=== PATIENT | female | born 1990 | race Caucasian/White ===

== ENCOUNTER → 2025-04-25 10:31 | Outpatient (REF) | payer BC, SELFPAY ==
[2025-04-25 11:23] LABS: Urine Albumin 1+ (Neg - Trace); Urine Bilirubin Negative (Negative); Urine Character Clear (Clear); Urine Color Yellow; Urine Glucose Negative (Negative); Urine Ketone Negative (Negative); Urine Leukocyte Negative (Negative); Urine Nitrite Negative (Negative); Urine Occult Blood 1+ (Negative); Urine Urobilinogen Negative (Neg - 1+)
[2025-04-25 11:23] LABS: % Basophils 0.3 % (0-2); % Eosinophils 1.5 % (0-6); % Immature Granulocytes 0.3 % (0-0.5); % Lymphocytes 23.4 % (20.5-51.1); % Monocytes 5.7 % (1.7-9.3); % Neutrophils 68.8 % (42.2-75.2); Absolute Eosinophils 0.1 10^3/uL (0-0.7); Absolute Lymphocytes 1.8 10^3/uL (1.2-3.4); Absolute Monocytes 0.4 10^3/uL (0.1-0.6); Absolute Neutrophils 5.2 10^3/uL (1.4-6.5); Hematocrit 37.7 % (37.0-47.0); Hemoglobin 13.3 g/dL (12.0-16.0); Mean Corp Hgb Conc. 35.3 g/dL (33.0-37.0); Mean Corpuscular Hgb 27.7 pg (27.0-31.0); Mean Corpuscular Volume 78.5 fL (81.0-99.0); Mean Platelet Volume 9.8 fL (7.4-10.4); Nucleated Red Blood Cells % 0 %; Platelet Count 246 10^3/uL (130-400); Red Cell Dist. Width 12.8 % (11.5-14.5); White Blood Cell Count 7.6 10^3/uL (4.8-10.8)
[2025-04-25 11:29] LABS: Urine Bacteria Few (Negative); Urine Mucus Moderate; Urine Red Blood Cell 0-2 /HPF (0-2); Urine Squamous Cell 21-25 /LPF (Few); Urine White Cell 0-2 /HPF (0-5)
[2025-04-25 12:29] LABS: Glycohemoglobin (HgbA1c) 4.9 % (4.0-5.6)
[2025-04-25 13:37] LABS: Hepatitis B Surface Antigen Negative (Negative)
[2025-04-25 13:48] LABS: HIV Combo Negative (Negative)
[2025-04-25 13:51] LABS: Rubella Positive
[2025-04-25 13:55] LABS: Hepatitis B Core Ab, Total Negative (Negative); Hepatitis B Surface Antibody Positive; Hepatitis C Antibody Negative (Negative)
== END ==
LOC: REG 10:31
PROVIDERS: ATTENDING PHYSICIAN Nurse Practitioner Family
DX: Z34.01 Encounter for supervision of normal first pregnancy, first trimester (principal)
CPT/HCPCS: 36415; 81003; 81015; 83036; 84702; 85025; 86704; 86706; 86762; 86780; 86803; 86850; 86900; 86901; 87077; 87086; 87147; 87340; 87389

== ENCOUNTER 2025-05-07 09:10 | Emergency (ER) | payer BC, SELFPAY ==
[2025-05-07 09:28] VITALS: BP 127/88
--- NOTE | 2025-05-07 11:06 | ED.GENMED ---
History of Present Illness
General
Chief Complaint: Problems
Time Seen by Provider: 05/07/25 10:52
History of Present Illness
History of Present Illness:
34-year-old female presents the emergency department for evaluation of vaginal bleeding. States she had light spotting last night, awoke this morning with lower abdominal cramping and bleeding described as 'similar to a period'. This is her first
, twin gestation, had gone through fertility treatments and has had IUP confirmed by ultrasound already. No fevers or chills.
Review of Systems
Review of Systems
Allergies reviewed?: Yes
All Other Systems: ROS reviewed and negative except as documented in HPI and ROS
Phy Exam
Physical Exam
Physical Exam:
GEN: Well appearing, NAD, WDWN
HEENT: Oral mucosa moist, no scleral icterus
Cardiac: Regular rate
Lung: No respiratory distress, no tachypnea
MSK: No gross deformity or injuries
Skin: Good color, no pallor or jaundice, no rashes
Neuro: AO x3, moves all extremities freely
Psych: Calm, cooperative
Course
Orders/Labs/Results
Orders:
Orders
05/07/25
US Preg 1st Trim EA Additional Urgent
Reason For Exam: vaginal bleeding twin
05/07/25 11:06
US 1st Trimester Urgent
Reason For Exam: 1st trimester bleeding
05/07/25 11:14
Type+Screen Urgent
Complete Blood Count/No Diff Urgent
HCG, Beta Quantitative [Beta HCG Quantitative] Urgent
Is this a screen?: No
05/07/25 13:37
* Blood Bank Products Urgent
Blood Bank Products: *Rhogam - Full Dose
Quantity: 300mg
Transfuse Today: Yes
Reason: Other
Other reason: Vaginal bleeding/miscarriage
Rho (D) Immune Globulin [Rhogam] 300 mcg IM ONCE ONE
Abnormal Lab Results
05/07/25
11:14
Hct 36.5 L %
(37.0-47.0)
05/07/25 11:14
Vital Signs
Initial and Last Documented VS:
Initial Vital Signs
Temp Pulse Resp BP Pulse Ox
98.8 F 99 16 127/88 99
05/07/25 09:28 05/07/25 09:28 05/07/25 09:28 05/07/25 09:28 05/07/25 09:28
Last Documented Vital Signs
Temp Pulse Resp BP Pulse Ox
98.8 F 83 20 123/78 98
05/07/25 09:28 05/07/25 14:14 05/07/25 14:14 05/07/25 14:14 05/07/25 14:14
Information
Weeks gestation: Weeks: (12)
Location: Location: (IUP, twin)
MDM/Problems Addressed
MDM/Problems Addressed:
Imaging reveals a small subchorionic collection with no evidence for compromise at this point. Patient advised strict pelvic rest, due to second trimester bleeding given RhoGAM as she has a negative blood type, will follow-up as an outpatient
with ROOM DESIGNER
*Pulse Oximetry
SaO2: 99
Oxygen Mode of Delivery: Room air
Patient hypoxic: no
*Critical Care Note
Total Time (30-74mins, 75-104mins- exclusive of procedures): Not Applicable
ED Attending Note
-
Portions of this chart may have been created with voice recognition software.� Occasional wrong word or��sound alike� substitutions may have occurred due to the inherent limitations of voice recognition software.
Discharge Plan
Departure
Patient Disposition: Home (Routine Discharge)
Date of Disposition: 05/07/25
Time of Disposition: 14:09
Patient with high blood pressure during this ER visit?: No
Discharge Problem:
Subchorionic hemorrhage in second trimester
Instructions: Subchorionic Bleeding
Referrals:
Ifeoma Barnes MD [Active, Gynecology]
Hugh Lundberg MD [Family Provider]
Activity Restrictions/Additional Instructions:
Strict pelvic rest, no intercourse, no heavy lifting >25 lbs, no vigorous exertion
Follow up with OBGYN
Interventions
Interventions:
*Risk Screen - Suicide Last Done: 05/07/25 11:20
*General Assessment Last Done: 05/07/25 11:20
*Neglect/Abuse Screening Last Done: 05/07/25 11:20
*ED- Fall Risk Assessment Last Done: 05/07/25 11:20
*ED COVID-19 Vaccine History Last Done: 05/07/25 11:20
*Nursing Disposition Last Done: 05/07/25 14:39
ED-Female Genitourinary Assessment Last Done: 05/07/25 11:20
Discharge Date and Time
Discharge Date/Time: 05/07/25 14:40
Print Language: WELSH
[2025-05-07 11:32] LABS: Hematocrit 36.5 % (37.0-47.0); Hemoglobin 12.6 g/dL (12.0-16.0); Mean Corp Hgb Conc. 34.5 g/dL (33.0-37.0); Mean Corpuscular Volume 81.3 fL (81.0-99.0); Platelet Count 234 10^3/uL (130-400); Red Cell Dist. Width 13.0 % (11.5-14.5)
[2025-05-07 12:27] LABS: Beta HCG Quantitative 170160.00 mIU/ml
[2025-05-07] MEDS: RHOGAM 300 MCG IM (14:10)
[2025-05-07 14:14] VITALS: BP 123/78
== END 2025-05-07 14:40 | disposition home or self-care (01) ==
LOC: EMR 09:10
PROVIDERS: Physician Assistant; EMERGENCY PHYSICIAN Emergency Medicine; FAMILY PHYSICIAN Internal Medicine
DX: O20.8 Other hemorrhage in early pregnancy (principal); Z3A.00 Weeks of gestation of pregnancy not specified; R10.30 Lower abdominal pain, unspecified; Z88.1 Allergy status to other antibiotic agents
CPT/HCPCS: 99284; 96372; 90384; 76801; 76802; 84702; 85027; 86850; 86900; 86901; J2790

== ENCOUNTER → 2025-05-11 11:14 | Outpatient (REF) | payer BC, SELFPAY | LOC: PNTC 11:14 | PROVIDERS: ATTENDING PHYSICIAN Obstetrics & Gynecology | DX: Z36.0 Encounter for antenatal screening for chromosomal anomalies (principal); Z36.82 Encounter for antenatal screening for nuchal translucency | CPT/HCPCS: 76801; 76802; 76813; 76814 ==

== ENCOUNTER → 2025-05-18 12:44 | Outpatient (REF) | payer BC, SELFPAY | LOC: RAD 12:44 | PROVIDERS: ATTENDING PHYSICIAN Student in an Organized Health Care Education/Training Program; FAMILY PHYSICIAN Internal Medicine | DX: O26.859 Spotting complicating pregnancy, unspecified trimester (principal) | CPT/HCPCS: 76805; 76810 ==

== ENCOUNTER → 2025-07-04 08:04 | Outpatient (REF) | payer BC, SELFPAY | LOC: PNTC 08:04 | PROVIDERS: ATTENDING PHYSICIAN Obstetrics & Gynecology | DX: O30.049 Twin pregnancy, dichorionic/diamniotic, unspecified trimester (principal) | CPT/HCPCS: 76811; 76812; 76817 ==

== ENCOUNTER → 2025-07-17 13:52 | Outpatient (REF) | payer BC, SELFPAY ==
[2025-07-17 15:11] LABS: Hematocrit 28.7 % (37.0-47.0); Hemoglobin 9.7 g/dL (12.0-16.0); Mean Corp Hgb Conc. 33.8 g/dL (33.0-37.0); Mean Corpuscular Volume 83.4 fL (81.0-99.0); Nucleated Red Blood Cells % 0 %; Platelet Count 233 10^3/uL (130-400); Red Cell Dist. Width 13.2 % (11.5-14.5)
[2025-07-17 15:19] LABS: ALT (SGPT) 22 U/L (0-35); AST (SGOT) 21 U/L (14-36); Albumin 3.4 g/dl (3.5-5.0); Alkaline Phosphatase 73 U/L (38-126); Blood Urea Nitrogen 4 mg/dl (7-17); Calcium 9.1 mg/dl (8.4-10.2); Carbon Dioxide 24 mmol/L (22-30); Chloride 105 mmol/L (98-107); Glucose 78 mg/dl (70-99); Potassium 3.7 mmol/L (3.5-5.1); Sodium 134 mmol/L (135-145); Total Protein 6.2 g/dl (6.3-8.2); eGFR > 60.00
[2025-07-17 15:32] LABS: Urine Character Slightly Cloudy (Clear)
== END ==
LOC: REG 13:52
PROVIDERS: ATTENDING PHYSICIAN Student in an Organized Health Care Education/Training Program; FAMILY PHYSICIAN Internal Medicine
DX: Z34.90 Encounter for supervision of normal pregnancy, unspecified, unspecified trimester (principal)
CPT/HCPCS: 36415; 80053; 81003; 82570; 84156; 85025

== ENCOUNTER → 2025-07-18 07:45 | Outpatient (REF) | payer BC, SELFPAY | LOC: PNTC 07:45 | PROVIDERS: ATTENDING PHYSICIAN Student in an Organized Health Care Education/Training Program | DX: O28.3 Abnormal ultrasonic finding on antenatal screening of mother (principal) | CPT/HCPCS: 76815 ==

== ENCOUNTER → 2025-07-24 16:43 | Outpatient (REF) | payer BC, SELFPAY ==
[2025-07-24 17:55] LABS: ALT (SGPT) 21 U/L (0-35); AST (SGOT) 20 U/L (14-36); Albumin 3.5 g/dl (3.5-5.0); Alkaline Phosphatase 75 U/L (38-126); Blood Urea Nitrogen 5 mg/dl (7-17); Calcium 8.8 mg/dl (8.4-10.2); Carbon Dioxide 25 mmol/L (22-30); Chloride 104 mmol/L (98-107); Glucose 76 mg/dl (70-99); Potassium 3.6 mmol/L (3.5-5.1); Sodium 130 mmol/L (135-145); Total Protein 6.2 g/dl (6.3-8.2); eGFR > 60.00
[2025-07-24 18:41] LABS: Urine Character Slightly Cloudy (Clear)
[2025-07-24 19:44] LABS: Urine Red Blood Cell 0-2 /HPF (0-2); Urine Squamous Cell >30 /LPF (Few); Urine White Cell 0-2 /HPF (0-5)
[2025-07-24 23:07] LABS: Height Cm 170.18 CM; Weight Kg 99.7 KG.
[2025-07-24 23:10] LABS: 24 Hour Urine Total Volume 2225 ml; Creat Clear Result 52.4 ml/min (61-166)
== END ==
LOC: REG 16:43
PROVIDERS: ATTENDING PHYSICIAN Student in an Organized Health Care Education/Training Program; FAMILY PHYSICIAN Internal Medicine
DX: Z34.90 Encounter for supervision of normal pregnancy, unspecified, unspecified trimester (principal); R80.8 Other proteinuria
CPT/HCPCS: 36415; 80053; 81003; 81015; 81050; 82570; 82575; 84156

== ENCOUNTER → 2025-08-03 08:10 | Outpatient (REF) | payer BC, SELFPAY | LOC: PNTC 08:10 | PROVIDERS: ATTENDING PHYSICIAN Obstetrics & Gynecology | DX: O30.049 Twin pregnancy, dichorionic/diamniotic, unspecified trimester (principal) | CPT/HCPCS: 76816 ==

== ENCOUNTER → 2025-08-16 07:50 | Outpatient (REF) | payer BC, SELFPAY ==
[2025-08-16 09:35] LABS: Hematocrit 27.8 % (37.0-47.0); Hemoglobin 9.5 g/dL (12.0-16.0); Mean Corp Hgb Conc. 34.2 g/dL (33.0-37.0); Mean Corpuscular Volume 80.3 fL (81.0-99.0); Nucleated Red Blood Cells % 0 %; Platelet Count 207 10^3/uL (130-400); Red Cell Dist. Width 12.9 % (11.5-14.5)
[2025-08-16 10:08] LABS: 1 Hour after 50gm 132 mg/dl
[2025-08-18 13:50] LABS: Syphilis/T. pallidum Ab Reflex Negative (Negative)
== END ==
LOC: REG 07:50
PROVIDERS: ATTENDING PHYSICIAN Obstetrics & Gynecology; FAMILY PHYSICIAN Internal Medicine
DX: Z34.93 Encounter for supervision of normal pregnancy, unspecified, third trimester (principal)
CPT/HCPCS: 36415; 82950; 85025; 86780

== ENCOUNTER → 2025-09-07 13:18 | Outpatient (REF) | payer BC, SELFPAY | LOC: PNTC 13:18 | PROVIDERS: ATTENDING PHYSICIAN Student in an Organized Health Care Education/Training Program | DX: O30.043 Twin pregnancy, dichorionic/diamniotic, third trimester (principal) | CPT/HCPCS: 36415; 76816; 86850; 86900; 86901; 96372; J2790 ==

== ENCOUNTER → 2025-09-21 09:37 | Outpatient (REF) | payer BC, SELFPAY | LOC: PNTC 09:37 | PROVIDERS: ATTENDING PHYSICIAN Obstetrics & Gynecology | DX: O12.13 Gestational proteinuria, third trimester (principal); O13.3 Gestational [pregnancy-induced] hypertension without significant proteinuria, third trimester; O30.043 Twin pregnancy, dichorionic/diamniotic, third trimester | CPT/HCPCS: 59025; 76815 ==

== ENCOUNTER → 2025-09-27 09:57 | Outpatient (REF) | payer BC, SELFPAY ==
[2025-09-27 10:35] LABS: Hematocrit 27.5 % (37.0-47.0); Hemoglobin 9.2 g/dL (12.0-16.0); Mean Corp Hgb Conc. 33.5 g/dL (33.0-37.0); Mean Corpuscular Volume 77.7 fL (81.0-99.0); Platelet Count 193 10^3/uL (130-400); Red Cell Dist. Width 13.2 % (11.5-14.5)
[2025-09-27 10:44] LABS: Urine Character Clear (Clear)
[2025-09-27 10:46] LABS: ALT (SGPT) 16 U/L (0-35); AST (SGOT) 19 U/L (14-36); Albumin 2.9 g/dl (3.5-5.0); Alkaline Phosphatase 143 U/L (38-126); Blood Urea Nitrogen 3 mg/dl (7-17); Calcium 8.4 mg/dl (8.4-10.2); Carbon Dioxide 21 mmol/L (22-30); Chloride 108 mmol/L (98-107); Glucose 118 mg/dl (70-99); Potassium 3.9 mmol/L (3.5-5.1); Sodium 133 mmol/L (135-145); Total Protein 5.6 g/dl (6.3-8.2); eGFR > 60.00
[2025-09-27 11:33] LABS: Urine Squamous Cell >30 /LPF (Few)
== END ==
LOC: PNTC 09:57
PROVIDERS: Student in an Organized Health Care Education/Training Program; ATTENDING PHYSICIAN Obstetrics & Gynecology
DX: O30.043 Twin pregnancy, dichorionic/diamniotic, third trimester (principal); Z34.93 Encounter for supervision of normal pregnancy, unspecified, third trimester
CPT/HCPCS: 36415; 59025; 76815; 80053; 81003; 81015; 82570; 84156; 85027

== ENCOUNTER → 2025-10-02 09:40 | Outpatient (REF) | payer BC, SELFPAY | LOC: PNTC 09:40 | PROVIDERS: ATTENDING PHYSICIAN Obstetrics & Gynecology | DX: O30.043 Twin pregnancy, dichorionic/diamniotic, third trimester (principal); Z34.93 Encounter for supervision of normal pregnancy, unspecified, third trimester; O13.3 Gestational [pregnancy-induced] hypertension without significant proteinuria, third trimester | CPT/HCPCS: 59025 ==

== ENCOUNTER → 2025-10-05 08:08 | Outpatient (REF) | payer BC, SELFPAY ==
[2025-10-05 08:48] LABS: Hematocrit 30.0 % (37.0-47.0); Hemoglobin 9.8 g/dL (12.0-16.0); Mean Corp Hgb Conc. 32.7 g/dL (33.0-37.0); Mean Corpuscular Volume 81.5 fL (81.0-99.0); Platelet Count 176 10^3/uL (130-400); Red Cell Dist. Width 15.9 % (11.5-14.5)
[2025-10-05 09:19] LABS: ALT (SGPT) 17 U/L (0-35); AST (SGOT) 23 U/L (14-36); Albumin 2.9 g/dl (3.5-5.0); Alkaline Phosphatase 154 U/L (38-126); Blood Urea Nitrogen < 2 mg/dl (7-17); Calcium 8.7 mg/dl (8.4-10.2); Carbon Dioxide 24 mmol/L (22-30); Chloride 107 mmol/L (98-107); Glucose 91 mg/dl (70-99); Sodium 132 mmol/L (135-145); Total Protein 5.7 g/dl (6.3-8.2); eGFR > 60.00
[2025-10-05 10:02] LABS: Potassium 4.3 mmol/L (3.5-5.1)
== END ==
LOC: PNTC 08:08
PROVIDERS: ATTENDING PHYSICIAN Student in an Organized Health Care Education/Training Program
DX: O30.043 Twin pregnancy, dichorionic/diamniotic, third trimester (principal); O14.03 Mild to moderate pre-eclampsia, third trimester
CPT/HCPCS: 36415; 59025; 76805; 76810; 80053; 82570; 84156; 85027

== ENCOUNTER → 2025-10-09 13:38 | Outpatient (REF) | payer BC, SELFPAY | LOC: PNTC 13:38 | PROVIDERS: ATTENDING PHYSICIAN Obstetrics & Gynecology | DX: O30.043 Twin pregnancy, dichorionic/diamniotic, third trimester (principal) | CPT/HCPCS: 59025 ==

== ENCOUNTER → 2025-10-12 08:34 | Outpatient (REF) | payer BC, SELFPAY ==
[2025-10-12 09:12] LABS: Urine Character Cloudy (Clear)
[2025-10-12 09:15] LABS: Hematocrit 31.1 % (37.0-47.0); Hemoglobin 10.1 g/dL (12.0-16.0); Mean Corp Hgb Conc. 32.5 g/dL (33.0-37.0); Mean Corpuscular Volume 79.9 fL (81.0-99.0); Nucleated Red Blood Cells % 0 %; Platelet Count 189 10^3/uL (130-400); Red Cell Dist. Width 18.5 % (11.5-14.5)
[2025-10-12 09:20] LABS: Urine Red Blood Cell 0-2 /HPF (0-2); Urine Squamous Cell >30 /LPF (Few); Urine White Cell None Seen /HPF (0-5)
[2025-10-12 10:34] LABS: ALT (SGPT) 15 U/L (0-35); AST (SGOT) 22 U/L (14-36); Albumin 2.9 g/dl (3.5-5.0); Alkaline Phosphatase 174 U/L (38-126); Blood Urea Nitrogen 3 mg/dl (7-17); Calcium 8.8 mg/dl (8.4-10.2); Carbon Dioxide 20 mmol/L (22-30); Chloride 108 mmol/L (98-107); Glucose 89 mg/dl (70-99); Potassium 4.2 mmol/L (3.5-5.1); Sodium 132 mmol/L (135-145); Total Protein 5.7 g/dl (6.3-8.2); Uric Acid 4.9 mg/dl (2.5-6.2); eGFR > 60.00
== END ==
LOC: PNTC 08:34
PROVIDERS: ATTENDING PHYSICIAN Obstetrics & Gynecology
DX: O30.043 Twin pregnancy, dichorionic/diamniotic, third trimester (principal)
CPT/HCPCS: 36415; 59025; 76815; 76818; 80053; 81003; 81015; 82570; 84156; 84550; 85025

== ENCOUNTER 2025-10-16 17:49 | Observation (INO) | payer BC, SELFPAY ==
[2025-10-16 18:08] VITALS: BMI 36.1
[2025-10-16 18:10] VITALS: BP 147/94
[2025-10-16 18:32] LABS: Hematocrit 32.5 % (37.0-47.0); Hemoglobin 10.7 g/dL (12.0-16.0); Mean Corp Hgb Conc. 32.9 g/dL (33.0-37.0); Mean Corpuscular Volume 80.6 fL (81.0-99.0); Platelet Count 199 10^3/uL (130-400); Red Cell Dist. Width 18.6 % (11.5-14.5)
[2025-10-16 19:23] LABS: ALT (SGPT) 15 U/L (0-35); AST (SGOT) 24 U/L (14-36); Albumin 2.9 g/dl (3.5-5.0); Alkaline Phosphatase 179 U/L (38-126); Blood Urea Nitrogen 5 mg/dl (7-17); Calcium 8.4 mg/dl (8.4-10.2); Carbon Dioxide 15 mmol/L (22-30); Chloride 106 mmol/L (98-107); Estimated Creatinine Clearance > 125 ml/min; Glucose 106 mg/dl (70-99); Potassium 3.9 mmol/L (3.5-5.1); Sodium 129 mmol/L (135-145); Total Protein 5.7 g/dl (6.3-8.2); eGFR > 60.00
== END 2025-10-16 20:27 | disposition home or self-care (01) ==
LOC: LDRP 17:49
PROVIDERS: ADMITTING PHYSICIAN Obstetrics & Gynecology
DX: O13.3 Gestational [pregnancy-induced] hypertension without significant proteinuria, third trimester (principal); R10.11 Right upper quadrant pain; Z3A.35 35 weeks gestation of pregnancy; O99.013 Anemia complicating pregnancy, third trimester; D64.9 Anemia, unspecified; Z88.1 Allergy status to other antibiotic agents
CPT/HCPCS: 80053; 82570; 84156; 85027; 86850; 86870; 86900; 86901; G0378

== ENCOUNTER → 2025-10-19 14:27 | Outpatient (REF) | payer BC, SELFPAY | LOC: PNTC 14:27 | PROVIDERS: ATTENDING PHYSICIAN Obstetrics & Gynecology | DX: O30.043 Twin pregnancy, dichorionic/diamniotic, third trimester (principal) | CPT/HCPCS: 59025 ==

== ENCOUNTER 2025-10-21 13:04 | Observation (INO) | payer BC, SELFPAY ==
[2025-10-21 14:43] VITALS: BP 143/102; BMI 36.1
[2025-10-21 14:43] LABS: Hematocrit 33.7 % (37.0-47.0); Hemoglobin 11.2 g/dL (12.0-16.0); Mean Corp Hgb Conc. 33.2 g/dL (33.0-37.0); Mean Corpuscular Volume 81.2 fL (81.0-99.0); Platelet Count 172 10^3/uL (130-400); Red Cell Dist. Width 18.5 % (11.5-14.5)
[2025-10-21 15:12] LABS: Urine Character Slightly Cloudy (Clear)
[2025-10-21 15:13] LABS: ALT (SGPT) 16 U/L (0-35); AST (SGOT) 27 U/L (14-36); Albumin 3.0 g/dl (3.5-5.0); Alkaline Phosphatase 189 U/L (38-126); Blood Urea Nitrogen 6 mg/dl (7-17); Calcium 8.6 mg/dl (8.4-10.2); Carbon Dioxide 19 mmol/L (22-30); Chloride 105 mmol/L (98-107); Estimated Creatinine Clearance > 125 ml/min; Glucose 77 mg/dl (70-99); Potassium 4.0 mmol/L (3.5-5.1); Sodium 131 mmol/L (135-145); Total Protein 5.7 g/dl (6.3-8.2); eGFR > 60.00
[2025-10-21 15:23] LABS: Urine Squamous Cell >30 /LPF (Few)
[2025-10-21 15:24] LABS: Urine Red Blood Cell 0-2 /HPF (0-2); Urine White Cell 0-2 /HPF (0-5)
== END 2025-10-21 16:59 | disposition home or self-care (01) ==
LOC: LDRP 13:04
PROVIDERS: ADMITTING PHYSICIAN Obstetrics & Gynecology; ATTENDING PHYSICIAN Obstetrics & Gynecology
DX: O99.891 Other specified diseases and conditions complicating pregnancy (principal); R10.11 Right upper quadrant pain; Z3A.36 36 weeks gestation of pregnancy
CPT/HCPCS: 59025; 80053; 81003; 81015; 82570; 84156; 85027; 86850; 86870; 86900; 86901; G0378

== ENCOUNTER → 2025-10-23 09:37 | Outpatient (REF) | payer BC, SELFPAY | LOC: PNTC 09:37 | PROVIDERS: ATTENDING PHYSICIAN Obstetrics & Gynecology | DX: O30.043 Twin pregnancy, dichorionic/diamniotic, third trimester (principal); O14.03 Mild to moderate pre-eclampsia, third trimester | CPT/HCPCS: 59025 ==

== ENCOUNTER 2025-10-25 12:01 | Inpatient (IN) | payer BC, SELFPAY ==
[2025-10-25 12:21] VITALS: BP 157/95; BMI 36.1
[2025-10-25 12:46] LABS: Hematocrit 34.3 % (37.0-47.0); Hemoglobin 11.5 g/dL (12.0-16.0); Mean Corp Hgb Conc. 33.5 g/dL (33.0-37.0); Mean Corpuscular Volume 79.0 fL (81.0-99.0); Nucleated Red Blood Cells % 0 %; Platelet Count 177 10^3/uL (130-400); Red Cell Dist. Width 18.2 % (11.5-14.5)
[2025-10-25] MEDS: TYLENOL 975 MG PO (13:20)
[2025-10-25] MEDS: BICITRA 30 ML PO (13:20)
[2025-10-25 13:30] LABS: ALT (SGPT) 18 U/L (0-35); AST (SGOT) 28 U/L (14-36); Albumin 3.1 g/dl (3.5-5.0); Alkaline Phosphatase 213 U/L (38-126); Blood Urea Nitrogen 6 mg/dl (7-17); Calcium 9.1 mg/dl (8.4-10.2); Carbon Dioxide 19 mmol/L (22-30); Chloride 107 mmol/L (98-107); Estimated Creatinine Clearance > 125 ml/min; Glucose 70 mg/dl (70-99); Potassium 4.4 mmol/L (3.5-5.1); Sodium 132 mmol/L (135-145); Total Protein 6.0 g/dl (6.3-8.2); eGFR > 60.00
[2025-10-25] MEDS: TRANEXAMIC ACID 100 IV (17:07)
[2025-10-25] MEDS: TORADOL 15 MG IV ×2 (17:31→23:10)
[2025-10-25] MEDS: ZOLOFT 50 MG PO (20:59)
[2025-10-25] MEDS: TYLENOL 650 MG PO (20:59)
[2025-10-25] MEDS: COLACE 100 MG PO (20:59)
[2025-10-26] MEDS: BENADRYL 25 MG PO (03:37)
[2025-10-26] MEDS: TYLENOL 650 MG PO (03:37)
[2025-10-26] MEDS: TORADOL 15 MG IV ×2 (05:28→12:16)
[2025-10-26 06:02] LABS: Hematocrit 29.3 % (37.0-47.0); Hemoglobin 9.8 g/dL (12.0-16.0); Mean Corp Hgb Conc. 33.4 g/dL (33.0-37.0); Mean Corpuscular Volume 79.8 fL (81.0-99.0); Platelet Count 160 10^3/uL (130-400); Red Cell Dist. Width 18.1 % (11.5-14.5)
[2025-10-26] MEDS: COLACE 100 MG PO ×2 (08:07→19:57)
[2025-10-26] MEDS: PRENATAL PLUS 1 TABLET PO (08:07)
[2025-10-26] MEDS: FEOSOL 325 MG PO (08:07)
[2025-10-26] MEDS: RHOGAM 300 MCG IM (13:02)
[2025-10-26] MEDS: MOTRIN 600 MG PO (18:49)
[2025-10-26] MEDS: ZOLOFT 50 MG PO (20:07)
[2025-10-27] MEDS: MOTRIN 600 MG PO ×4 (03:46→22:31)
[2025-10-27] MEDS: TYLENOL 650 MG PO ×3 (03:47→20:50)
--- NOTE | 2025-10-27 07:19 | W.PN.ANS.POP ---
Anesthesia Post Operative
- Anesthesia Post Op Note
Vital Signs Stable-See Nursing Note: Yes
Airway Patent: Yes
Adequate Pain Control: Yes
Change in Mental Status: No
Current Postoperative Nausea & Vomiting: No
Anesthesia Complications: No
General Anesthetic Recall: No
Unplanned Admission: No
Post Op Hydration Adequate: Yes
[2025-10-27] MEDS: PRENATAL PLUS 1 TABLET PO (07:53)
[2025-10-27] MEDS: COLACE 100 MG PO ×2 (07:53→20:39)
[2025-10-27] MEDS: FEOSOL 325 MG PO (07:53)
[2025-10-27] MEDS: ROXICODONE 5 MG PO ×2 (11:38→16:22)
[2025-10-27] MEDS: ROXICODONE 10 MG PO (20:50)
[2025-10-27] MEDS: ZOLOFT 50 MG PO (20:51)
[2025-10-28] MEDS: ROXICODONE 10 MG PO (03:40)
[2025-10-28] MEDS: MOTRIN 600 MG PO ×3 (05:38→18:46)
[2025-10-28] MEDS: FEOSOL 325 MG PO (09:00)
[2025-10-28] MEDS: ROXICODONE 5 MG PO ×3 (09:00→21:15)
[2025-10-28] MEDS: TYLENOL 650 MG PO ×3 (09:01→21:16)
[2025-10-28] MEDS: COLACE 100 MG PO ×2 (09:01→20:19)
[2025-10-28] MEDS: PRENATAL PLUS 1 TABLET PO (09:04)
[2025-10-28] MEDS: ZOLOFT 50 MG PO (20:19)
[2025-10-29] MEDS: MOTRIN 600 MG PO ×2 (00:33→08:37)
[2025-10-29] MEDS: TYLENOL 650 MG PO ×2 (04:46→10:37)
[2025-10-29] MEDS: ROXICODONE 5 MG PO ×2 (04:47→10:37)
[2025-10-29] MEDS: COLACE 100 MG PO (08:37)
[2025-10-29] MEDS: PRENATAL PLUS 1 TABLET PO (08:37)
[2025-10-29] MEDS: FEOSOL 325 MG PO (08:37)
[2025-10-31 13:39] LABS: Syphilis/T. pallidum Ab Reflex Negative (Negative)
== END 2025-10-29 12:58 | disposition home or self-care (01) | DRG 788 ==
LOC: LDRP 12:01
PROVIDERS: ADMITTING PHYSICIAN Obstetrics & Gynecology
PROC: 10D00Z1 Extraction of Products of Conception, Low, Open Approach (ICD-10-PCS; 2025-10-29)
DX: O13.4 Gestational [pregnancy-induced] hypertension without significant proteinuria, complicating childbirth (principal); Z3A.36 36 weeks gestation of pregnancy; Z37.2 Twins, both liveborn; O32.1XX1 Maternal care for breech presentation, fetus 1; O99.824 Streptococcus B carrier state complicating childbirth; O30.043 Twin pregnancy, dichorionic/diamniotic, third trimester
CPT/HCPCS: 80053; 82570; 84156; 85025; 85027; 85461; 86780; 86850; 86870; 86900; 86901; 88307; J2790